=== PATIENT | male | born 1995 | race Caucasian/White ===

== ENCOUNTER 2019-10-25 19:00 | Emergency (ER) | payer SELFPAY ==
[2019-10-25] MEDS ORDERED: Sodium Chloride 0.9% 10 ML Syringe FLUSH PRN (19:20)
[2019-10-25] MEDS ORDERED: fentaNYL 100 MCG/2 ML SDV IVPUSH ONE (19:20)
[2019-10-25] MEDS ORDERED: Ketorolac 30 MG/ML SDV IVPUSH ONE (19:21)
--- NOTE | 2019-10-25 19:28 | EDM.PDOC ---
ED HPI GENERAL MEDICAL PROBLEM - General Chief Complaint: Back Pain or Injury Stated Complaint: Back Pain Time Seen by Provider: 10/25/19 19:12 Source of Information: Reports: Patient - History of Present Illness INITIAL COMMENTS - FREE TEXT/NARRATIVE: Trae is a 24 y/o male who comes to the ER in a great deal of pain in his back. He reports that he has had a hx of scoliosis since he was 13 and done pretty well with it until yesterday when he started to have excruciating pain in the midthoracic region. He has tried Tylenol, BenGay, and Hot showering and nothing has helped. He has not seen any PCP in man years and the pain is so great he can hardly take a deep breath. Right Middle Back Pain Score (Numeric/FACES): 10 - Related Data Allergies Allergy/AdvReac Type Severity Reaction Status Date / Time Influenza Virus Vaccines Allergy Shaking Verified 10/25/19 19:12 Home Meds: Home Meds . [No Known Home Meds] 10/25/19 [History] Past Medical History Musculoskeletal History: Reports: Other (See Below) (Scoliosis) Review of Systems - Review of Systems Review Of Systems: See Below Constitutional: Reports: No Symptoms Eyes: Reports: No Symptoms Ears: Reports: No Symptoms Nose: Reports: No Symptoms Mouth/Throat: Reports: No Symptoms Respiratory: Reports: Shortness of Breath Cardiovascular: Reports: No Symptoms GI/Abdominal: Reports: No Symptoms Genitourinary: Reports: No Symptoms Musculoskeletal: Reports: Back Pain Skin: Reports: No Symptoms Neurological: Reports: No Symptoms Psychiatric: Reports: No Symptoms ED EXAM, GENERAL - Physical Exam Exam: See Below General Appearance: Alert, WD/WN, No Apparent Distress Ears: Hearing Grossly Normal Nose: Normal Inspection, No Blood Throat/Mouth: Normal Lips, Normal Teeth Head: Atraumatic, Normocephalic Neck: Non-Tender Respiratory/Chest: No Respiratory Distress, Lungs Clear Cardiovascular: Regular Rate, Rhythm GI/Abdominal: Normal Bowel Sounds, Soft (Male) Exam: Deferred Rectal (Males) Exam: Deferred Back Exam: Other (Tenderness noted over midthoracic region, mild redness also noted in area from patient rubbing and applying heat) Extremities: Normal Inspection, Normal Range of Motion, Non-Tender, No Pedal Edema, Normal Capillary Refill Neurological: Alert, Oriented, CN II-XII Intact, Normal Cognition, Normal Reflexes, No Motor/Sensory Deficits, Abnormal Gait (Walks slumped over vicenta to pain) Psychiatric: Tearful Skin Exam: Warm, Dry, Intact, Normal Color Lymphatic: No Adenopathy Course - Vital Signs Text/Narrative:: The patient was seen by the [facility]. Xray of the spine was ordered. He was given Toradol 30mg IVP and Fentanyl 100mcg IVP for pain. 2014 Initially had decreased pain from Fentanyl, but now pain is returning. Reports can take a deep breath, but back still hurting. Dilaudid 1mg IVP ordered. 2039 Pain not improving. Xrays reviewed. Labs ordered and may consider CT to rule out other causes of the pain. 2144 Reviewed labs. Patient ready to go home, pain better and he feels he can rest. Discussed with patient that he will need to find a PCP and get referral to an Ortho Specialist to manage scoliosis. Will send home with pain meds. Discharge meds reviewed. He was sent home in stable condition. Last Recorded V/S: Last Vital Signs Temp 37.1 C 10/25/19 19:05 Pulse 60 10/25/19 19:05 Resp 14 10/25/19 19:05 BP 152/86 H 10/25/19 19:05 Pulse Ox 100 10/25/19 19:05 - Orders/Labs/Meds Orders: Active Orders 24 hr Category Date Time Status Lumbar Spine 2 or 3V [CR] Stat Exams 10/25/19 19:21 Taken Thoracolumbar 2V [CR] Stat Exams 10/25/19 19:56 Taken UA W/ZURDO RFLX IF INDICATED [URIN] Stat Lab 10/25/19 21:27 Ordered UA W/ZURDO RFLX IF INDICATED [URIN] Stat Lab 10/25/19 21:27 Ordered UA W/MICROSCOPIC [URIN] Stat Lab 10/25/19 21:27 Ordered URINE DRUG SCREEN,POC [POC] Stat Lab 10/25/19 21:27 Ordered URINE DRUG SCREEN,POC [POC] Stat Lab 10/25/19 21:27 Ordered Sodium Chloride 0.9% [Saline Flush] Med 10/25/19 19:20 Active 10 ml FLUSH ASDIRECTED PRN Saline Lock Insert [OM.PC] Stat Oth 10/25/19 19:19 Ordered Medication Orders Sodium Chloride (Saline Flush) 10 ml FLUSH ASDIRECTED PRN PRN Reason: Keep Vein Open Labs: Laboratory Tests 10/25/19 10/25/19 10/25/19 Range/Units 20:44 20:44 20:53 WBC 11.8 H (4.0-10.0) x10^3/uL RBC 5.25 (4.5-6.0) x10^6/uL Hgb 15.6 (14.0-18.0) g/dL Hct 46.1 (40.0-52.0) % MCV 87.8 (78.0-93.0) fL MCH 29.7 (26.0-32.0) pg MCHC 33.8 (32.0-36.0) g/dL RDW Coeff of Cherise 12.6 (10.0-15.0) % Plt Count 287 (130-400) x10^3/uL Neut % (Auto) 72.4 (50.0-80.0) % Lymph % (Auto) 17.3 L (25.0-50.0) % Pepin % (Auto) 6.8 (2.0-11.0) % Eos % (Auto) 3.2 (0.0-4.0) % Baso % (Auto) 0.3 (0.2-1.2) % Sodium (136-145) mmol/L Potassium (3.5-5.1) mmol/L Chloride (98-107) mmol/L Carbon Dioxide (21-32) mmol/L Anion Gap (10-20) mmol/L BUN (7-18) mg/dL Creatinine (0.70-1.30) mg/dL Est Cr Clr Drug Dosing mL/min Estimated GFR (MDRD) Glucose (74-106) mg/dL Calcium (8.5-10.1) mg/dL Corrected Calcium (8.5-10.1) mg/dL Total Bilirubin (0.2-1.0) mg/dL AST (15-37) U/L ALT (16-63) U/L Alkaline Phosphatase (46-116) U/L Total Protein (6.4-8.2) g/dL Albumin (3.4-5.0) g/dL Globulin Albumin/Globulin Ratio Urine Color Ludmila H (YELLOW) Urine Appearance Clear (CLEAR) Urine pH 6.0 (5.0-8.0) Ur Specific [place] 1.025 Urine Protein 30 H (NEGATIVE) mg/dL Urine Glucose (UA) Negative (NEGATIVE) mg/dL Urine Ketones Trace H (NEGATIVE) mg/dL Urine Occult Blood Negative (NEGATIVE) Urine Nitrite Negative (NEGATIVE) Urine Bilirubin Small H (NEGATIVE) Urine Urobilinogen 2.0 H (0.2) EU/dL Ur Leukocyte Esterase Negative (NEGATIVE) Urine RBC Not seen (NOT SEEN) /HPF Urine WBC 0-5 (NOT SEEN) /HPF Ur Squamous Epith Cells Rare (NEGATIVE) /HPF Urine Bacteria Rare (NEGATIVE) /HPF Urine Mucus Many H (NEGATIVE) /LPF Urine Opiates Screen Negative (NEGATIVE) Ur Buprenorphine Scrn Negative (NEGATIVE) Ur Oxycodone Screen Negative (NEGATIVE) Ur EDDP (Meth Metab) Negative (NEGATIVE) Urine Methadone Screen Negative (NEGATIVE) Ur Barbituates Screen Negative (NEGATIVE) Ur Tricyclics Screen Positive H (NEGATIVE) Ur Phencyclidine Scrn Negative (NEGATIVE) Ur Amphetamines Screen Negative (NEGATIVE) U Methamphetamines Scrn Negative (NEGATIVE) Urine MDMA Screen Negative (NEGATIVE) U Benzodiazepines Scrn Negative (NEGATIVE) Urine Cocaine Screen Negative (NEGATIVE) U Marijuana (THC) Screen Positive H (NEGATIVE) 10/25/19 Range/Units 20:53 WBC (4.0-10.0) x10^3/uL RBC (4.5-6.0) x10^6/uL Hgb (14.0-18.0) g/dL Hct (40.0-52.0) % MCV (78.0-93.0) fL MCH (26.0-32.0) pg MCHC (32.0-36.0) g/dL RDW Coeff of Cherise (10.0-15.0) % Plt Count (130-400) x10^3/uL Neut % (Auto) (50.0-80.0) % Lymph % (Auto) (25.0-50.0) % Pepin % (Auto) (2.0-11.0) % Eos % (Auto) (0.0-4.0) % Baso % (Auto) (0.2-1.2) % Sodium 141 (136-145) mmol/L Potassium 4.2 (3.5-5.1) mmol/L Chloride 100 (98-107) mmol/L Carbon Dioxide 28 (21-32) mmol/L Anion Gap 17.2 (10-20) mmol/L BUN 12 (7-18) mg/dL Creatinine 1.1 (0.70-1.30) mg/dL Est Cr Clr Drug Dosing 98.50 mL/min Estimated GFR (MDRD) > 60 Glucose 106 (74-106) mg/dL Calcium 9.3 (8.5-10.1) mg/dL Corrected Calcium 9.06 (8.5-10.1) mg/dL Total Bilirubin 0.6 (0.2-1.0) mg/dL AST 20 (15-37) U/L ALT 17 (16-63) U/L Alkaline Phosphatase 96 (46-116) U/L Total Protein 7.9 (6.4-8.2) g/dL Albumin 4.3 (3.4-5.0) g/dL Globulin 3.6 Albumin/Globulin Ratio 1.19 Urine Color (YELLOW) Urine Appearance (CLEAR) Urine pH (5.0-8.0) Ur Specific [place] Urine Protein (NEGATIVE) mg/dL Urine Glucose (UA) (NEGATIVE) mg/dL Urine Ketones (NEGATIVE) mg/dL Urine Occult Blood (NEGATIVE) Urine Nitrite (NEGATIVE) Urine Bilirubin (NEGATIVE) Urine Urobilinogen (0.2) EU/dL Ur Leukocyte Esterase (NEGATIVE) Urine RBC (NOT SEEN) /HPF Urine WBC (NOT SEEN) /HPF Ur Squamous Epith Cells (NEGATIVE) /HPF Urine Bacteria (NEGATIVE) /HPF Urine Mucus (NEGATIVE) /LPF Urine Opiates Screen (NEGATIVE) Ur Buprenorphine Scrn (NEGATIVE) Ur Oxycodone Screen (NEGATIVE) Ur EDDP (Meth Metab) (NEGATIVE) Urine Methadone Screen (NEGATIVE) Ur Barbituates Screen (NEGATIVE) Ur Tricyclics Screen (NEGATIVE) Ur Phencyclidine Scrn (NEGATIVE) Ur Amphetamines Screen (NEGATIVE) U Methamphetamines Scrn (NEGATIVE) Urine MDMA Screen (NEGATIVE) U Benzodiazepines Scrn (NEGATIVE) Urine Cocaine Screen (NEGATIVE) U Marijuana (THC) Screen (NEGATIVE) Meds: Medications Generic Name Dose Route Start Last Admin Trade Name Freq PRN Reason Stop Dose Admin Sodium Chloride 10 ml 10/25/19 19:20 Saline Flush FLUSH ASDIRECTED PRN Keep Vein Open Discontinued Medications Generic Name Dose Route Start Last Admin Trade Name Mary PRN Reason Stop Dose Admin Fentanyl 100 mcg 10/25/19 19:20 10/25/19 19:26 Sublimaze IVPUSH 10/25/19 19:21 100 mcg ONETIME ONE Administration Hydromorphone HCl 1 mg 10/25/19 20:17 10/25/19 20:20 Dilaudid IVPUSH 10/25/19 20:18 1 mg ONETIME ONE Administration Hydromorphone HCl 1 mg 10/25/19 20:45 10/25/19 20:49 Dilaudid IVPUSH 10/25/19 20:46 1 mg ONETIME ONE Administration Ketorolac Tromethamine 30 mg 10/25/19 19:21 10/25/19 19:25 Toradol IVPUSH 10/25/19 19:22 30 mg ONETIME ONE Administration Departure - Departure Time of Disposition: 21:57 Disposition: Home, Self-Care 01 Preliminary Cause of *Q: Cardiac Arrest Condition: Good Clinical Impression: Scoliosis deformity of spine - Discharge Information *PRESCRIPTION DRUG MONITORING PROGRAM REVIEWED*: No *COPY OF PRESCRIPTION DRUG MONITORING REPORT IN PATIENT ADONIS: No Instructions: Scoliosis Referrals: PCP,Unknown [Ordering Only Provider] - Forms: ED Department Discharge Additional Instructions: -Hydrocodone-APAP 5/325mg 1-2 tabs oral every 4-6 hours as needed for pain #5(Rx ) -Use acetaminophen or ibuprofen as needed for pain -Apply ice or heat as needed for comfort -Make an appt with a Primary Care Provider -Contact Optometrist Owner to sign up for Medicaid Sepsis Event Note - Focused Exam Vital Signs: Vital Signs Temp Pulse Resp BP Pulse Ox 10/25/19 19:05 37.1 C 60 14 152/86 H 100 Date Exam was Performed: 10/25/19 Time Exam was Performed: 21:52 - My Orders Last 24 Hours: My Active Orders 10/25/19 19:19 Saline Lock Insert [OM.PC] Stat 10/25/19 19:20 Sodium Chloride 0.9% [Saline Flush] 10 ml FLUSH ASDIRECTED PRN 10/25/19 19:21 Lumbar Spine 2 or 3V [CR] Stat 10/25/19 19:56 Thoracolumbar 2V [CR] Stat 10/25/19 21:27 UA W/ZURDO RFLX IF INDICATED [URIN] Stat UA W/ZURDO RFLX IF INDICATED [URIN] Stat UA W/MICROSCOPIC [URIN] Stat URINE DRUG SCREEN,POC [POC] Stat URINE DRUG SCREEN,POC [POC] Stat - Assessment/Plan Last 24 Hours: My Active Orders 10/25/19 19:19 Saline Lock Insert [OM.PC] Stat 10/25/19 19:20 Sodium Chloride 0.9% [Saline Flush] 10 ml FLUSH ASDIRECTED PRN 10/25/19 19:21 Lumbar Spine 2 or 3V [CR] Stat 10/25/19 19:56 Thoracolumbar 2V [CR] Stat 10/25/19 21:27 UA W/ZURDO RFLX IF INDICATED [URIN] Stat UA W/ZURDO RFLX IF INDICATED [URIN] Stat UA W/MICROSCOPIC [URIN] Stat URINE DRUG SCREEN,POC [POC] Stat URINE DRUG SCREEN,POC [POC] Stat
[2019-10-25] MEDS ORDERED: HYDROmorphone 1 MG/ML Syringe IVPUSH ONE ×2 (20:17→20:45)
[2019-10-25 21:21] LABS: CHLORIDE,CL 100 mmol/L (98-107); SODIUM,NA 141 mmol/L (136-145)
[2019-10-25 21:23] LABS: ANION GAP 17.2 mmol/L (10-20)
[2019-10-25 21:37] LABS: BUPRENORPHINE,URINE NEGATIVE (NEGATIVE); MARIJUANA,URINE POSITIVE (NEGATIVE); METHYLENEDIOXYMETHAMP,UR NEGATIVE (NEGATIVE); PHENCYCLIDINE,URINE NEGATIVE (NEGATIVE)
[2019-10-25] MEDS ORDERED: Take Home: Acetaminophen/HYDROcodone 325-5 MG, 5 Tab Pack PO ONE (21:58)
--- NOTE | 2019-10-26 08:25 | CR ---
[id number] RAD/RAD Thoracolumbar [place] 2V EXAM: AP AND LATERAL THORACIC SPINE. INDICATION: Severe pain. COMPARISON: No previous similar exam is available for comparison. FINDINGS: No new fractures identified. Mild dextroscoliotic curvature centered at the midthoracic spine. There is preservation of height of disc spaces and vertebrae. The pedicles are intact. IMPRESSION: No fracture or subluxation. Moise Ko DO 10/26/19 0823 Thank you for allowing us to participate in the care of your patient.
--- NOTE | 2019-10-26 08:27 | CR ---
[id number] RAD/RAD Lumbar Spine 2-3V EXAM: AP AND LATERAL LUMBAR SPINE. INDICATION: Severe pain. COMPARISON: No previous similar exam is available for comparison. FINDINGS: No fracture or subluxation is seen. There is preservation of height of disc spaces and vertebrae. The pedicles are intact. IMPRESSION: No fracture or subluxation. Moise Ko DO 10/26/19 0826 Thank you for allowing us to participate in the care of your patient.
== END 2019-10-25 22:12 | disposition home or self-care (01) ==
LOC: VM.ED 19:00 → SUPCPDRO 19:00 → VM.ED 22:12
DX: M41.9 Scoliosis, unspecified (principal); Z88.7 Allergy status to serum and vaccine
CPT/HCPCS: 36415; 72080; 72100; 80053; 80305-QW; 81001; 85025; 96374; 96375; 99283-GF; 99284-25; A9270-GY; J1170; J1885; J3010

== ENCOUNTER 2019-10-26 19:28 | Emergency (ER) | payer SELFPAY ==
[2019-10-26] MEDS ORDERED: Sodium Chloride 0.9% 10 ML Syringe FLUSH PRN (20:08)
[2019-10-26] MEDS ORDERED: HYDROmorphone 1 MG/ML Syringe IVPUSH ONE (20:08)
--- NOTE | 2019-10-26 20:16 | EDM.PDOC ---
ED HPI GENERAL MEDICAL PROBLEM - General Stated Complaint: BACK PAIN Time Seen by Provider: 10/26/19 20:00 Source of Information: Reports: Patient - History of Present Illness INITIAL COMMENTS - FREE TEXT/NARRATIVE: Trae is a 24 y/o male who returns to the ER tonight with thoracic back pain that returned when he woke up today. Reports that the pain is 6-7/10 and in the same mid-thoracic region. He was seen last night and given pain meds and labs were done along with plain films. He was advised to seek care with a PCP and today, however he did not do that today. He reports that he was "advised to show up at the [facility] tomorrow for an MRI at 4pm." - Related Data Allergies Allergy/AdvReac Type Severity Reaction Status Date / Time Influenza Virus Vaccines Allergy Shaking Verified 10/25/19 19:12 Home Meds: Home Meds . [No Known Home Meds] 10/25/19 [History] Past Medical History Musculoskeletal History: Reports: Other (See Below) (Scoliosis) Other Musculoskeletal History: Scoliosis Neurological History: Reports: Migraines Psychiatric History: Reports: ADHD, Other (See Below) Other Psychiatric History: Patient states he has ADHD, but is unable to afford the medications. - Past Surgical History Other Musculoskeletal Surgeries/Procedures:: Hand Surgery to repair a fracture, has a plate and screw Review of Systems - Review of Systems Review Of Systems: See Below Constitutional: Reports: No Symptoms Eyes: Reports: No Symptoms Ears: Reports: No Symptoms Nose: Reports: No Symptoms Mouth/Throat: Reports: No Symptoms Respiratory: Reports: No Symptoms Cardiovascular: Reports: No Symptoms GI/Abdominal: Reports: No Symptoms Genitourinary: Reports: No Symptoms Musculoskeletal: Reports: Back Pain Skin: Reports: No Symptoms Neurological: Reports: No Symptoms Psychiatric: Reports: No Symptoms ED EXAM, GENERAL - Physical Exam Exam: See Below General Appearance: Alert, WD/WN, Other (young adult male, appears to be in pain ) Ears: Hearing Grossly Normal Nose: Normal Inspection, Normal Mucosa Throat/Mouth: Normal Lips, Normal Teeth, Normal Voice Head: Atraumatic, Normocephalic Neck: Non-Tender Respiratory/Chest: No Respiratory Distress, Lungs Clear, Normal Breath Sounds, Chest Non-Tender Cardiovascular: Regular Rate, Rhythm GI/Abdominal: Normal Bowel Sounds, Soft, Non-Tender (Male) Exam: Deferred Rectal (Males) Exam: Deferred Back Exam: Normal Inspection, Other. No: CVA Tenderness (L), CVA Tenderness (R ) (tenderness along throacic spine region) Extremities: Normal Inspection, Non-Tender, Normal Capillary Refill Neurological: Alert, Oriented, CN II-XII Intact, Normal Cognition, No Motor/ Sensory Deficits Psychiatric: Normal Affect, Normal Mood Skin Exam: Warm, Dry, Intact, Normal Color, No Rash Lymphatic: No Adenopathy Course - Vital Signs Text/Narrative:: The patient was seen by the [facility] [facility]. Labs and CT were ordered. Dilaudid 1 mg IVP was ordered for pain. CT ordered tonight since plain films last night did not show any acute process and patient returns again tonight with same pain. Labs repeated to see if any infectious process in progress. Of note, urine drug screen is positive for THC and TCAs, however negative for Opiates and patient was sent home from ER last night with Hydrocodone/APAP 5/325mg #5 tabs for pain and used them all today. Labs and CT results reviewed. 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 [facility] advised patient that he needs to be seen by Ortho Specialist for management and further diagnostics. Will send pt home with #5 Hydrodone/APAP tonight and then he advised that he needs to seek care with a PCP and Ortho referral for further treatment. He was given discharge instructions and sent home in stable condition. - Orders/Labs/Meds Orders: Active Orders 24 hr Category Date Time Status Thoracic Spine wo Cont [CT] Stat Exams 10/26/19 20:09 Taken Sodium Chloride 0.9% [Saline Flush] Med 10/26/19 20:08 Active 10 ml FLUSH ASDIRECTED PRN Saline Lock Insert [OM.PC] Stat Oth 10/26/19 20:08 Ordered Medication Orders Sodium Chloride (Saline Flush) 10 ml FLUSH ASDIRECTED PRN PRN Reason: Keep Vein Open Labs: Laboratory Tests 10/26/19 10/26/19 10/26/19 Range/Units 20:05 20:18 20:18 WBC 8.6 (4.0-10.0) x10^3/uL RBC 4.95 (4.5-6.0) x10^6/uL Hgb 14.8 (14.0-18.0) g/dL Hct 44.2 (40.0-52.0) % MCV 89.3 (78.0-93.0) fL MCH 29.9 (26.0-32.0) pg MCHC 33.5 (32.0-36.0) g/dL RDW Coeff of Cherise 13.4 (10.0-15.0) % Plt Count 296 (130-400) x10^3/uL Neut % (Auto) 59.9 (50.0-80.0) % Lymph % (Auto) 26.8 (25.0-50.0) % Moca % (Auto) 7.3 (2.0-11.0) % Eos % (Auto) 5.7 H (0.0-4.0) % Baso % (Auto) 0.3 (0.2-1.2) % Sodium 143 (136-145) mmol/L Potassium 3.9 (3.5-5.1) mmol/L Chloride 102 (98-107) mmol/L Carbon Dioxide 28 (21-32) mmol/L Anion Gap 16.9 (10-20) mmol/L BUN 11 (7-18) mg/dL Creatinine 0.9 (0.70-1.30) mg/dL Est Cr Clr Drug Dosing TNP Estimated GFR (MDRD) > 60 Glucose 94 (74-106) mg/dL Calcium 9.1 (8.5-10.1) mg/dL Corrected Calcium 9.18 (8.5-10.1) mg/dL Total Bilirubin 0.4 (0.2-1.0) mg/dL AST 18 (15-37) U/L ALT 17 (16-63) U/L Alkaline Phosphatase 86 (46-116) U/L Total Protein 7.2 (6.4-8.2) g/dL Albumin 3.9 (3.4-5.0) g/dL Globulin 3.3 Albumin/Globulin Ratio 1.18 Urine Color Yellow (YELLOW) Urine Appearance Clear (CLEAR) Urine pH 6.0 (5.0-8.0) Ur Specific [place] >=1.030 Urine Protein Negative (NEGATIVE) mg/dL Urine Glucose (UA) Negative (NEGATIVE) mg/dL Urine Ketones Negative (NEGATIVE) mg/dL Urine Occult Blood Negative (NEGATIVE) Urine Nitrite Negative (NEGATIVE) Urine Bilirubin Small H (NEGATIVE) Urine Urobilinogen 2.0 H (0.2) EU/dL Ur Leukocyte Esterase Negative (NEGATIVE) Urine Opiates Screen (NEGATIVE) Ur Buprenorphine Scrn (NEGATIVE) Ur Oxycodone Screen (NEGATIVE) Ur EDDP (Meth Metab) (NEGATIVE) Urine Methadone Screen (NEGATIVE) Ur Barbituates Screen (NEGATIVE) Ur Tricyclics Screen (NEGATIVE) Ur Phencyclidine Scrn (NEGATIVE) Ur Amphetamines Screen (NEGATIVE) U Methamphetamines Scrn (NEGATIVE) Urine MDMA Screen (NEGATIVE) U Benzodiazepines Scrn (NEGATIVE) Urine Cocaine Screen (NEGATIVE) U Marijuana (THC) Screen (NEGATIVE) Ethyl Alcohol < 3 (0-3) mg/dL 10/26/19 Range/Units 20:55 WBC (4.0-10.0) x10^3/uL RBC (4.5-6.0) x10^6/uL Hgb (14.0-18.0) g/dL Hct (40.0-52.0) % MCV (78.0-93.0) fL MCH (26.0-32.0) pg MCHC (32.0-36.0) g/dL RDW Coeff of Cherise (10.0-15.0) % Plt Count (130-400) x10^3/uL Neut % (Auto) (50.0-80.0) % Lymph % (Auto) (25.0-50.0) % Moca % (Auto) (2.0-11.0) % Eos % (Auto) (0.0-4.0) % Baso % (Auto) (0.2-1.2) % Sodium (136-145) mmol/L Potassium (3.5-5.1) mmol/L Chloride (98-107) mmol/L Carbon Dioxide (21-32) mmol/L Anion Gap (10-20) mmol/L BUN (7-18) mg/dL Creatinine (0.70-1.30) mg/dL Est Cr Clr Drug Dosing Estimated GFR (MDRD) Glucose (74-106) mg/dL Calcium (8.5-10.1) mg/dL Corrected Calcium (8.5-10.1) mg/dL Total Bilirubin (0.2-1.0) mg/dL AST (15-37) U/L ALT (16-63) U/L Alkaline Phosphatase (46-116) U/L Total Protein (6.4-8.2) g/dL Albumin (3.4-5.0) g/dL Globulin Albumin/Globulin Ratio Urine Color (YELLOW) Urine Appearance (CLEAR) Urine pH (5.0-8.0) Ur Specific [place] Urine Protein (NEGATIVE) mg/dL Urine Glucose (UA) (NEGATIVE) mg/dL Urine Ketones (NEGATIVE) mg/dL Urine Occult Blood (NEGATIVE) Urine Nitrite (NEGATIVE) Urine Bilirubin (NEGATIVE) Urine Urobilinogen (0.2) EU/dL Ur Leukocyte Esterase (NEGATIVE) Urine Opiates Screen Negative (NEGATIVE) Ur Buprenorphine Scrn Negative (NEGATIVE) Ur Oxycodone Screen Negative (NEGATIVE) Ur EDDP (Meth Metab) Negative (NEGATIVE) Urine Methadone Screen Negative (NEGATIVE) Ur Barbituates Screen Negative (NEGATIVE) Ur Tricyclics Screen Positive H (NEGATIVE) Ur Phencyclidine Scrn Negative (NEGATIVE) Ur Amphetamines Screen Negative (NEGATIVE) U Methamphetamines Scrn Negative (NEGATIVE) Urine MDMA Screen Negative (NEGATIVE) U Benzodiazepines Scrn Negative (NEGATIVE) Urine Cocaine Screen Negative (NEGATIVE) U Marijuana (THC) Screen Positive H (NEGATIVE) Ethyl Alcohol (0-3) mg/dL Meds: Medications Generic Name Dose Route Start Last Admin Trade Name Freq PRN Reason Stop Dose Admin Sodium Chloride 10 ml 10/26/19 20:08 Saline Flush FLUSH ASDIRECTED PRN Keep Vein Open Discontinued Medications Generic Name Dose Route Start Last Admin Trade Name Freq PRN Reason Stop Dose Admin Hydromorphone HCl 1 mg 10/26/19 20:08 10/26/19 20:59 Dilaudid IVPUSH 10/26/19 20:09 1 mg ONETIME ONE Administration - Radiology Interpretation CT Results Date: 10/26/19 - Re-Assessments/Exams Free Text/Narrative Re-Assessment/Exam: 10/26/19 21:46 1)No acute ossous or alignemnt abnormality of the thoracic spine 2)Schmorl's node with increased kyphosis in 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 Departure - Departure Time of Disposition: 21:47 Disposition: Home, Self-Care 01 Condition: Good Clinical Impression: Thoracic back pain, Scoliosis of thoracic spine - Discharge Information *PRESCRIPTION DRUG MONITORING PROGRAM REVIEWED*: Yes *COPY OF PRESCRIPTION DRUG MONITORING REPORT IN PATIENT ADONIS: Not Applicable Instructions: Thoracic Strain, Scoliosis Additional Instructions: -Go to the [facility] in the AM in [place] to establish care with a PCP -Get a referral to [facility] -Hydrocodone/APAP 5/325mg 1-2 tabs every 4-6 hours as needed for pain #5 (Rx) -Use over the counter ibuprofen 800mg every 8 hours as needed for pain -Ice/heat as needed for pain Sepsis Event Note - Focused Exam Date Exam was Performed: 10/26/19 Time Exam was Performed: 21:39 - My Orders Last 24 Hours: My Active Orders 10/26/19 20:08 Sodium Chloride 0.9% [Saline Flush] 10 ml FLUSH ASDIRECTED PRN Saline Lock Insert [OM.PC] Stat 10/26/19 20:09 Thoracic Spine wo Cont [CT] Stat - Assessment/Plan Last 24 Hours: My Active Orders 10/26/19 20:08 Sodium Chloride 0.9% [Saline Flush] 10 ml FLUSH ASDIRECTED PRN Saline Lock Insert [OM.PC] Stat 10/26/19 20:09 Thoracic Spine wo Cont [CT] Stat
[2019-10-26 20:57] LABS: ANION GAP 16.9 mmol/L (10-20); CHLORIDE,CL 102 mmol/L (98-107); SODIUM,NA 143 mmol/L (136-145)
[2019-10-26 21:10] LABS: BUPRENORPHINE,URINE NEGATIVE (NEGATIVE); MARIJUANA,URINE POSITIVE (NEGATIVE); METHYLENEDIOXYMETHAMP,UR NEGATIVE (NEGATIVE); PHENCYCLIDINE,URINE NEGATIVE (NEGATIVE)
[2019-10-26] MEDS ORDERED: Take Home: Acetaminophen/HYDROcodone 325-5 MG, 5 Tab Pack PO ONE (21:50)
--- NOTE | 2019-10-27 08:04 | CT ---
[id number] CT/CT Thoracic Spine WO IV Exam: CT Thoracic Spine WO IV CLINICAL DATA: PAIN. COMPARISON: None. FINDINGS: No fracture or subluxation is seen. Vertebral body heights and disc spaces are maintained. There are a few Schmorl's nodes along the mid to lower thoracic spine. The paraspinal soft tissues are within normal limits. IMPRESSION: NO ACUTE FRACTURE OR SUBLUXATION. Moise Ko DO 10/27/19 0803 Thank you for allowing us to participate in the care of your patient.
== END 2019-10-26 22:10 | disposition home or self-care (01) ==
LOC: VM.ED 19:28
DX: M54.6 Pain in thoracic spine (principal); M41.9 Scoliosis, unspecified; Z88.7 Allergy status to serum and vaccine
CPT/HCPCS: 36415; 72128; 80053; 80305-QW; 81003; 85025; 96374; 99284-25; 99284-GF; A9270-GY; G0480; J1170